=== PATIENT | female | born 1960 | race African-American/Black ===

== ENCOUNTER 2021-05-22 04:22 | Emergency (ER) | payer MEDICAID ==
[~2021-05-22] VITALS: Ht 165.1 cm; Wt 82.0 kg
[2021-05-22] MEDS: IBUPROFEN 600MG TABLET PO STA ×2 (05:52→05:54)
[2021-05-22 06:04] LABS: CHLORIDE 110 mEq/L (98-107)
[2021-05-22 06:08] LABS: ETHANOL BLOOD 105 mg/dL
[2021-05-22 06:28] LABS: BASOPHILS % 1.3 % (0.0-2.0); EOSINOPHILS % 1.5 % (0.0-5.0); HEMATOCRIT. 40.7 % (36.0-48.0); HEMOGLOBIN. 13.5 g/dL (12.0-16.0); LYMPHOCYTES % 39.2 % (20.0-50.0); MEAN CORPUSCULAR HEMOGLOBIN 28.5 pg (28.0-32.0); MEAN CORPUSCULAR VOLUME 85.7 fL (81.0-99.0); MEAN PLATELET VOLUME 8.6 fl (7.4-10.4); MONOCYTES % 5.2 % (2.0-8.0); NEUTROPHILS % 52.8 % (40.0-76.0); PLATELET 277 x1000/uL (130-400); RED BLOOD CELL COUNT 4.75 mill/uL (4.2-5.4); RED CELL DISTRIBUTION WIDTH 15.2 % (11.6-14.6)
[2021-05-22] MEDS ORDERED: SODIUM CHLORIDE 0.9% 1,000 ML IV ONE (06:30)
[2021-05-22] MEDS: ACETAMINOPHEN 325MG TABLET PO ONE ×2 (09:00→09:45)
[2021-05-22] MEDS ORDERED: GABAPENTIN 100MG CAPSULE PO ONE (10:00)
[2021-05-22 12:31] VITALS: BP 141/87
== END 2021-05-22 12:42 | disposition home or self-care (01) ==
LOC: ER 04:22
DX: M79.18 Myalgia, other site (principal); I11.0 Hypertensive heart disease with heart failure; I50.9 Heart failure, unspecified; E11.9 Type 2 diabetes mellitus without complications
CPT/HCPCS: 36415; 71045; 80053; 80320; 83880; 84484; 85025; 85379; 93005; 96360; 96361; 99285; J7030; G0480

== ENCOUNTER 2021-05-31 04:53 | Emergency (ER) | payer MEDICAID ==
[~2021-05-31] VITALS: Ht 172.7 cm; Wt 100.0 kg
[2021-05-31] MEDS ORDERED: MORPHINE SULFATE 4 MG/ML CPJ (NOT FOR IM USE) IV STA (05:13)
[2021-05-31] MEDS ORDERED: ONDANSETRON HCL 4MG/2ML INJ IV STA (05:13)
[2021-05-31] MEDS ORDERED: SODIUM CHLORIDE 0.9% 1,000 ML IV ONE (05:15)
[2021-05-31 07:05] LABS: BASOPHILS % 1.1 % (0.0-2.0); EOSINOPHILS % 1.8 % (0.0-5.0); HEMATOCRIT. 39.7 % (36.0-48.0); HEMOGLOBIN. 13.5 g/dL (12.0-16.0); MEAN CORPUSCULAR HEMOGLOBIN 29.1 pg (28.0-32.0); MEAN CORPUSCULAR VOLUME 85.4 fL (81.0-99.0); MEAN PLATELET VOLUME 8.5 fl (7.4-10.4); MONOCYTES % 5.7 % (2.0-8.0); NEUTROPHILS % 58.4 % (40.0-76.0); PLATELET 281 x1000/uL (130-400); RED BLOOD CELL COUNT 4.65 mill/uL (4.2-5.4); RED CELL DISTRIBUTION WIDTH 15.6 % (11.6-14.6)
[2021-05-31 07:10] LABS: CHLORIDE 107 mEq/L (98-107)
[2021-05-31 07:22] LABS: INR 1.1; PROTHROMBIN TIME 11.6 sec (9.6-11.0)
[2021-05-31] MEDS ORDERED: ACETAMINOPHEN 325MG TABLET PO ONE (08:45)
[2021-05-31 10:05] VITALS: BP 134/91
== END 2021-05-31 11:01 | disposition home or self-care (01) ==
LOC: ER 04:53
DX: R10.9 Unspecified abdominal pain (principal); E11.9 Type 2 diabetes mellitus without complications; I10 Essential (primary) hypertension
CPT/HCPCS: 36415; 71045; 74176; 80053; 85025; 85610; 86850; 86900; 86901; 93005; 96361; 96374; 96375; 99285; J2270; J2405; J7030

== ENCOUNTER 2021-07-15 05:44 | Emergency (ER) | payer MEDICAID, OTHER ==
[~2021-07-15] VITALS: Ht 167.6 cm; Wt 91.0 kg
[2021-07-15 05:46] VITALS: BP 173/110
[2021-07-15] MEDS ORDERED: DIPHENHYDRAMINE 50MG CAPSULE PO ONE (06:00)
[2021-07-15] MEDS ORDERED: HYDR99LO MT (06:03)
[2021-07-15] MEDS ORDERED: DIPH25CA83 PO (06:03)
[2021-07-15] MEDS ORDERED: HYDR-3735 MT (10:17)
[2021-07-15] MEDS ORDERED: PRED10TA MT (10:17)
== END 2021-07-15 06:25 | disposition home or self-care (01) ==
LOC: ER 05:44
DX: L50.9 Urticaria, unspecified (principal); E11.9 Type 2 diabetes mellitus without complications; I10 Essential (primary) hypertension; Z98.890 Other specified postprocedural states
CPT/HCPCS: 99283; Q0163

== ENCOUNTER 2021-07-15 08:49 | Emergency (ER) | payer MEDICAID, OTHER ==
[~2021-07-15] VITALS: Ht 167.6 cm; Wt 104.0 kg
[~2021-07-15 08:49] MED LIST: DIPH25CA83 PO; HYDR99LO MT
[2021-07-15] MEDS ORDERED: HYDROXYZINE 10 MG TABLET PO STA (09:31)
[2021-07-15] MEDS ORDERED: PREDNISONE 20MG TABLET PO ONE (09:45)
[2021-07-15] MEDS ORDERED: DIPHENHYDRAMINE 25MG CAPSULE PO ONE (10:15)
[2021-07-15] MEDS ORDERED: HYDR-3735 MT (10:17)
[2021-07-15] MEDS ORDERED: PRED10TA MT (10:17)
[2021-07-15 10:45] VITALS: BP 158/72
== END 2021-07-15 10:47 | disposition home or self-care (01) ==
LOC: ER 08:49
DX: R21 Rash and other nonspecific skin eruption (principal); E11.9 Type 2 diabetes mellitus without complications; I10 Essential (primary) hypertension
CPT/HCPCS: 99283; J7512; Q0163

== ENCOUNTER 2021-08-02 11:57 | Emergency (ER) | payer MEDICAID, OTHER ==
[~2021-08-02] VITALS: Ht 177.8 cm; Wt 96.0 kg
[~2021-08-02 11:57] MED LIST changes: +HYDR-3735 MT; +PRED10TA MT
[2021-08-02] MEDS ORDERED: MORPHINE SULFATE 4 MG/ML CPJ (NOT FOR IM USE) IV STA (12:24)
[2021-08-02] MEDS ORDERED: ONDANSETRON HCL 4MG/2ML INJ IV STA (12:24)
[2021-08-02] MEDS ORDERED: GABAPENTIN 300MG CAPSULE PO ONE (12:30)
[2021-08-02] MEDS ORDERED: DIPHENHYDRAMINE 50MG/ML VIAL IV ONE (12:30)
[2021-08-02 12:45] LABS: BASOPHILS % 0.9 % (0.0-2.0); EOSINOPHILS % 3.2 % (0.0-5.0); HEMATOCRIT. 38.8 % (36.0-48.0); HEMOGLOBIN. 12.9 g/dL (12.0-16.0); LYMPHOCYTES % 33.4 % (20.0-50.0); MEAN CORPUSCULAR HEMOGLOBIN 28.6 pg (28.0-32.0); MEAN CORPUSCULAR VOLUME 86.4 fL (81.0-99.0); MEAN PLATELET VOLUME 8.4 fl (7.4-10.4); MONOCYTES % 6.9 % (2.0-8.0); NEUTROPHILS % 55.6 % (40.0-76.0); PLATELET 297 x1000/uL (130-400); RED BLOOD CELL COUNT 4.49 mill/uL (4.2-5.4); RED CELL DISTRIBUTION WIDTH 15.6 % (11.6-14.6)
[2021-08-02 12:54] LABS: CHLORIDE 111 mEq/L (98-107)
[2021-08-02 13:02] LABS: ETHANOL BLOOD < 10 mg/dL
[2021-08-02 13:21] LABS: PARTIAL THROMBOPLASTIN TIME 24.2 sec (23.4-31.0); PROTHROMBIN TIME 10.5 sec (9.6-11.0)
[2021-08-02] MEDS ORDERED: ASPIRIN 81MG TABLET PO ONE (13:45)
[2021-08-02] MEDS ORDERED: NITROGLYCERIN 0.4MG TABLET SL SL PRN (13:45)
[2021-08-02] MEDS ORDERED: FUROSEMIDE 40MG/4ML VIAL IVP ONE (14:15)
[2021-08-02] MEDS ORDERED: ENOXAPARIN 100MG/ML SYR SUBCUT ONE (14:30)
[2021-08-02] MEDS ORDERED: CEFTRIAXONE 1 G PREMIX 50 ML IV ONE (15:30)
[2021-08-02] MEDS ORDERED: AZITHROMYCIN 500MG/250ML 250 ML IV ONE (15:30)
[2021-08-02] MEDS ORDERED: SODIUM CHLORIDE 0.9% 1000ML BAG (SEPSIS BOLUS) IV ONE (16:15)
[2021-08-02 18:24] VITALS: BP 135/83
== END 2021-08-02 19:25 | disposition short-term general hospital (02) ==
LOC: ER 12:03 → CANBEDREQ 18:49 → ER 19:25
DX: A41.9 Sepsis, unspecified organism (principal); R65.20 Severe sepsis without septic shock; M79.672 Pain in left foot; M79.671 Pain in right foot; R07.89 Other chest pain; I10 Essential (primary) hypertension; E11.9 Type 2 diabetes mellitus without complications; Z20.822 Contact with and (suspected) exposure to COVID-19
CPT/HCPCS: 36415; 71045; 78582; 80053; 80320; 83605; 83880; 84484; 85025; 85379; 85610; 85730; 87040; 87426; 93005; 93970; 96361; 96365; 96368; 96372; 96375; 99291; A9540; A9558; C9803; J0456; J0696; J1200; J1650; J1940; J2270; J2405; J7030; Z7610; G0480

== ENCOUNTER 2022-10-01 11:30 | Emergency (ER) | payer MEDICAID, OTHER ==
[~2022-10-01] VITALS: Ht 172.7 cm; Wt 100.0 kg
[2022-10-01 11:34] VITALS: BP 142/79; PULSE 99; RESP 20; TEMP 98.6; O2SAT 95
[2022-10-01 14:21] LABS: BASOPHILS % 0.5 % (0.0-2.0); EOSINOPHILS % 1.5 % (0.0-5.0); HEMOGLOBIN. 11.9 g/dL (12.0-16.0); LYMPHOCYTES % 26.4 % (20.0-50.0); MEAN CORPUSCULAR HEMOGLOBIN 28.8 pg (28.0-32.0); MEAN CORPUSCULAR VOLUME 87.2 fL (81.0-99.0); MEAN PLATELET VOLUME 8.5 fl (7.4-10.4); MONOCYTES % 7.9 % (2.0-8.0); NEUTROPHILS % 63.7 % (40.0-76.0); PLATELET 276 x1000/uL (130-400); RED BLOOD CELL COUNT 4.13 mill/uL (4.2-5.4); RED CELL DISTRIBUTION WIDTH 13.7 % (11.6-14.6); WHITE BLOOD COUNT 11.8 x1000/uL (4.5-11.0)
[2022-10-01 14:37] LABS: CHLORIDE 116 mEq/L (98-107); INDEX HEMOLYSI 1 (1-3); INDEX ICTERIC 1 (1-4); INDEX LIPEMIC 1 (1-3); POTASSIUM 3.8 mEq/L (3.5-5.1); SODIUM 143 mEq/L (136-145)
[2022-10-01 14:44] LABS: ALANINE AMINOTRANSFERASE 21 IU/L (13-61); ALBUMIN 3.3 g/dL (3.4-5.0); ASPARTATE AMINOTRANSFERASE 18 IU/L (15-37); BILIRUBIN TOTAL 0.2 mg/dL (0.1-1.0); CALCIUM 9.2 mg/dL (8.5-10.1); CARBON DIOXIDE 24 mEq/L (21-32); CREATININE 1.1 mg/dL (0.6-1.3); ETHANOL BLOOD < 10 mg/dL (-10); GLUCOSE 129 mg/dL (70-105); PROTEIN TOTAL 6.8 g/dL (6.0-8.3); UREA NITROGEN BLOOD 27 mg/dL (7-21)
[2022-10-01] MEDS ORDERED: TRAMADOL 50MG TABLET PO ONE (15:15)
[2022-10-01] MEDS ORDERED: ACETAMINOPHEN 325MG TABLET PO ONE (15:15)
[2022-10-01] MEDS ORDERED: PREG75CA MT (16:17)
[2022-10-01] MEDS ORDERED: PREG50CA MT (16:17)
[2022-10-01] MEDS ORDERED: IBUP-2029 MT (16:18)
[2022-10-01 16:55] LABS: TROPONIN I HIGH SENSITIVITY 9 ng/L (<54)
== END 2022-10-01 16:47 | disposition home or self-care (01) ==
LOC: ER 11:45
DX: E11.42 Type 2 diabetes mellitus with diabetic polyneuropathy (principal); Z79.899 Other long term (current) drug therapy
CPT/HCPCS: 36415; 80053; 80320; 84484; 85025; 93005; 99284; G0480

== ENCOUNTER 2024-09-06 20:42 | Emergency (ER) | payer OTHER, MEDICAID ==
[~2024-09-06] VITALS: Ht 167.6 cm; Wt 85.0 kg
[~2024-09-06 20:42] MED LIST changes: +IBUP-2029 MT
[2024-09-06 20:46] VITALS: O2SAT 97
[2024-09-06] MEDS: TETANUS, DIPHTHERIA, PERTUSSIS VAC/PF 0.5ML (>10YR OLD) IM ONE (21:30)
[2024-09-06 22:38] LABS: BASOPHILS % 0.3 % (0.0-2.0); EOSINOPHILS % 1.9 % (0.0-5.0); HEMATOCRIT. 40.5 % (36.0-48.0); HEMOGLOBIN. 12.9 g/dL (12.0-16.0); LYMPHOCYTES % 13.4 % (20.0-50.0); MEAN PLATELET VOLUME 9.2 fl (7.4-10.4); MONOCYTES % 7.3 % (2.0-8.0); NEUTROPHILS % 77.1 % (40.0-76.0); PLATELET 267 x1000/uL (130-400); RED BLOOD CELL COUNT 4.64 mill/uL (4.2-5.4); RED CELL DISTRIBUTION WIDTH 14.7 % (11.6-14.6)
[2024-09-06 22:48] LABS: INR 0.9
[2024-09-06 22:55] LABS: CREATININE 1.4 mg/dL (0.6-1.0); UREA NITROGEN BLOOD 36 mg/dL (9-23)
[2024-09-06 22:56] LABS: TROPONIN I HIGH SENSITIVITY 7 ng/L (3.0-34)
[2024-09-07 00:28] LABS: TROPONIN I HIGH SENSITIVITY 7 ng/L (3.0-34)
[2024-09-07] MEDS: LORAZEPAM 0.5MG TABLET PO ONE (00:30)
[2024-09-07 00:47] VITALS: BP 138/90; PULSE 88; RESP 18; TEMP 36.9; O2SAT 95
[2024-09-07 01:13] LABS: CLARITY URINE CLEAR (CLEAR); COLOR URINE YELLOW (YELLOW); GLUCOSE URINE NEGATIVE (NEGATIVE); KETONES URINE NEGATIVE (NEGATIVE); LEUKOCYTE ESTERASE URINE 1+ (NEGATIVE); NITRITE URINE NEGATIVE (NEGATIVE); OCCULT BLOOD URINE NEGATIVE (NEGATIVE); PH URINE 5.0 (4.5-8.0); PROTEIN URINE NEGATIVE (NEGATIVE); SPECIFIC GRAVITY URINE 1.015 (1.005-1.030); UROBILINOGEN URINE 1.0 E.U./dL (0.2-1.0)
[2024-09-07] MEDS: KETOROLAC 15MG/ML VIAL IM ONE (01:15)
[2024-09-07 03:32] LABS: SQUAMOUS EPITHELIAL CELL URINE 1+ /lpf (RARE/1+)
[2024-09-07 03:40] LABS: BACTERIA URINE 1+; RBC URINE 0-2 /hpf (0-2)
== END 2024-09-07 01:11 ==
LOC: ER 20:42
DX: S61.432A Puncture wound without foreign body of left hand, initial encounter (principal); R07.89 Other chest pain; I11.0 Hypertensive heart disease with heart failure; I50.9 Heart failure, unspecified; E11.9 Type 2 diabetes mellitus without complications; F10.90 Alcohol use, unspecified, uncomplicated; Z79.52 Long term (current) use of systemic steroids; Z79.899 Other long term (current) drug therapy; X58.XXXA Exposure to other specified factors, initial encounter; Y93.89 Activity, other specified; Y92.89 Other specified places as the place of occurrence of the external cause; Y99.8 Other external cause status; Y90.9 Presence of alcohol in blood, level not specified
CPT/HCPCS: 80048; 83880; 85025; 85610; 84484 ×2; 36415; 71045; 90715; 93005; 90471; 99285; 81003; 96372; J1885; Z7610 ×2